=== PATIENT | male | born 1970 | race Caucasian/White ===

== ENCOUNTER 2019-12-14 11:10 | Emergency (ER) | payer BC ==
--- NOTE | 2019-12-14 12:02 | RAD REPORT ---
EXAM DESCRIPTION: CT - [id number] - 12/14/2019 11:51 am CLINICAL HISTORY: Trauma, head and neck injury. head injury COMPARISON: No comparisons TECHNIQUE: Axial 5 mm thick images of the head were obtained. Axial 2 mm thick images of the cervical spine were obtained with sagittal and coronal reconstruction images generated and reviewed. All CT scans are performed using dose optimization technique as appropriate and may include automated exposure control or mA/KV adjustment according to patient size. FINDINGS: CT HEAD WITHOUT CONTRAST: No acute hemorrhage, hydrocephalus or extra-axial collection is identified.No areas of brain edema or midline shift. The paranasal sinuses and mastoids are clear.The calvarium is intact. CT CERVICAL SPINE WITHOUT CONTRAST: No fracture or subluxation.Mild to moderate lower cervical spondylosis.No prevertebral soft tissues s welling is identified. IMPRESSION: No acute intracranial or cervical spine findings. Mild to moderate lower cervical spondylosis.
--- NOTE | 2019-12-14 12:15 | ER ---
Nurse's Notes [facility] Name: Arben Cain Age: 49 yrs Sex: Male : 1970 Arrival Date: 12/14/2019 Time: 11:13 Bed 18 Private MD: Diagnosis: Superficial injury of head Presentation: 12/14 11:27 Presenting complaint: Patient states: slipped and fell in bathtub 2 days ago, has a big iw knot on back of head and couldn't wear his hard hat at work because of the pain, was told he needed a doctor's note to return , pt denies LOC, denies being on blood thinners , c/o mild headache. 11:27 Acuity: [facility] iw 11:27 Method Of Arrival: Ambulatory iw 11:29 Transition of care: patient was not received from another setting of care. Onset of iw symptoms was December 12, 2019. Risk Assessment: Do you want to hurt yourself or someone else? Patient reports no desire to harm self or others. Initial Sepsis Screen: Does the patient meet any 2 criteria? No. Patient's initial sepsis screen is negative. Does the patient have a suspected source of infection? No. Patient's initial sepsis screen is negative. Care prior to arrival: None. Triage Assessment: 11:30 General: Appears in no apparent distress. comfortable, Behavior is calm, cooperative, bp appropriate for age. Pain: Complains of pain in left side of the back of head. EENT: No deficits noted. Neuro: No deficits noted. Cardiovascular: No deficits noted. Respiratory: No deficits noted. GI: No signs and/or symptoms were reported involving the gastrointestinal system. : No signs and/or symptoms were reported regarding the genitourinary system. Derm: No deficits noted. Musculoskeletal: No deficits noted. Historical: - Allergies: 11:30 No Known Allergies; iw - Home Meds: 11:30 None [Active]; iw - PMHx: 11:30 None; iw - PSHx: 11:30 leg sx; Hernia repair; iw - Immunization history:: Adult Immunizations. - Coronavirus screen:: The patient has NOT traveled to [place], [place], or [place] in the past 14 days. Proceed with normal triage process as indicated. - Social history:: Smoking status: Patient reports the use of cigarette tobacco products, smokes one pack cigarettes per day. - Ebola Screening: : Patient negative for fever greater than or equal to 101.5 degrees Fahrenheit, and additional compatible Ebola Virus Disease symptoms Patient denies exposure to infectious person Patient denies travel to an Ebola-affected area in the 21 days before illness onset No symptoms or risks identified at this time. Screenin:30 Abuse screen: Denies threats or abuse. Denies injuries from another. Nutritional bp screening: No deficits noted. Tuberculosis screening: No symptoms or risk factors identified. Fall Risk None identified. Assessment: 11:30 General: SEE TRIAGE NOTE. bp 12:32 Reassessment: PT D/C HOME AMBULATORY, DX WITH SUPERFICIAL HEAD INJURY. bp Vital Signs: 11:30 BP 163 / 101; Pulse 82; Resp 16; Temp 97.8; Pulse Ox 100% on R/A; Weight 102.06 kg; iw Height 6 ft. (182.88 cm); Pain 1/10; 12:32 BP 157 / 97; Pulse 81; Resp 17; Temp 98; Pulse Ox 99% ; bp 11:30 Body Mass Index 30.52 (102.06 kg, 182.88 cm) ED Course: 11:13 Patient arrived in ED. ag5 11:29 Triage completed. iw 11:30 Arm band placed on. iw 11:30 Patient has correct armband on for positive identification. Bed in low position. Call bp light in reach. Side rails up X2. 11:33 Miguel Love PA is PHCP. mell 11:33 Phyllis Pastrana MD is Attending Physician. [facility] 11:44 Ritesh Gao, RN is Primary Nurse. bp 11:53 CT Head C Spine In Process Unspecified. EDMS 12:32 No provider procedures requiring assistance completed. Patient did not have IV access bp during this emergency room visit. Administered Medications: No medications were administered Outcome: 12:15 Discharge ordered by . m 12:32 Discharged to home ambulatory. bp 12:32 Condition: stable 12:32 Discharge instructions given to patient, Instructed on discharge instructions, follow up and referral plans. Demonstrated understanding of instructions, follow-up care. 12:34 Patient left the ED. bp Signatures: Dispatcher [employer] EDMS Miguel Love PA PA jmm Williams, Irene, RN RN iw Ritesh Gao RN RN Cruz Ibarradelaney ag5
--- NOTE | 2019-12-14 12:16 | EDPHYS ---
Physician Documentation [facility] Name: Arben Cain Age: 49 yrs Sex: Male : 1970 Arrival Date: 12/14/2019 Time: 11:13 Bed 18 Private MD: ED Physician Phyllis Pastrana HPI: 12/14 11:39 This 49 yrs old Male presents to ER via Ambulatory with complaints of Fall jmm Injury, Head Injury-Adult. 11:39 Details of fall: The patient fell from an upright position. Onset: The symptoms/episode jmm began/occurred acutely, 2 day(s) ago. Associated injuries: The patient sustained injury to the head. Patient states he slipped in the bathtub 2 days prior hitting the back of his head. Patient states having soreness and headache since. Denies vomiting, denies LOC. . Historical: - Allergies: 11:30 No Known Allergies; iw - Home Meds: 11:30 None [Active]; iw - PMHx: 11:30 None; iw - PSHx: 11:30 leg sx; Hernia repair; iw - Immunization history:: Adult Immunizations. - Coronavirus screen:: The patient has NOT traveled to [place], [place], or [place] in the past 14 days. Proceed with normal triage process as indicated. - Social history:: Smoking status: Patient reports the use of cigarette tobacco products, smokes one pack cigarettes per day. - Ebola Screening: : Patient negative for fever greater than or equal to 101.5 degrees Fahrenheit, and additional compatible Ebola Virus Disease symptoms Patient denies exposure to infectious person Patient denies travel to an Ebola-affected area in the 21 days before illness onset No symptoms or risks identified at this time. ROS: 11:39 Constitutional: Negative for fever, chills, and weight loss, Cardiovascular: Negative jmm for chest pain, palpitations, and edema, Respiratory: Negative for shortness of breath, cough, wheezing, and pleuritic chest pain. 11:39 Neuro: Positive for headache. 11:39 All other systems are negative. Exam: 11:39 Constitutional: This is a well developed, well nourished patient who is awake, alert, jmm and in no acute distress. 11:39 Eyes: EOMI, no conjunctival erythema appreciated ENT: Moist Mucus Membranes 11:39 Chest/axilla: Normal chest wall appearance and motion. Cardiovascular: Regular rate and rhythm. No edema appreciated Respiratory: Normal respirations, no respiratory distress appreciated Abdomen/GI: Non distended, soft Back: Normal ROM Skin: General appearance color normal MS/ Extremity: Moves all extremities, no obvious deformities appreciated, no edema noted to the lower extremities Neuro: Awake and alert, normal gait Psych: Behavior is normal, Mood is normal, Patient is cooperative and pleasant 11:39 Head/face: Noted is tenderness, that is moderate, of the left side of the back of head. 11:39 Neck: C-spine: appears grossly normal. Vital Signs: 11:30 BP 163 / 101; Pulse 82; Resp 16; Temp 97.8; Pulse Ox 100% on R/A; Weight 102.06 kg; iw Height 6 ft. (182.88 cm); Pain 1/10; 12:32 BP 157 / 97; Pulse 81; Resp 17; Temp 98; Pulse Ox 99% ; bp 11:30 Body Mass Index 30.52 (102.06 kg, 182.88 cm) iw MDM: 11:38 Patient medically screened. [facility] 12:14 Data reviewed: vital signs, nurses notes. Counseling: I had a detailed discussion with mell the patient and/or guardian regarding: the historical points, exam findings, and any diagnostic results supporting the discharge/admit diagnosis, radiology results, the need for outpatient follow up, to return to the emergency department if symptoms worsen or persist or if there are any questions or concerns that arise at home. ED course: Patient given head injury return precautions. Patient understood and agrees with the plan of care. . 12/14 11:38 Order name: CT Head C Spine; Complete Time: 12:14 [facility] Administered Medications: No medications were administered Disposition: 18:18 Co-signature as Attending Physician, Phyllis Pastrana MD. ma2 Disposition: 12/14/19 12:15 Discharged to Home. Impression: Superficial injury of head. - Condition is Stable. - Discharge Instructions: Head Injury, Adult. - Medication Reconciliation Form, Thank You Letter, Antibiotic Education, Prescription Opioid Use, Work release form form. - Follow up: Private Physician; When: 2 - 3 days; Reason: Recheck today's complaints, Continuance of care, Re-evaluation by your physician. Signatures: Dispatcher [employer] EDMS Christi Loveel, PA PA jmm Pito, Desiree, RN RN Ritesh Orellana, RN RN bp Phyllis Pastrana MD MD ma2 Corrections: (The following items were deleted from the chart) 12:34 12:15 12/14/2019 12:15 Discharged to Home. Impression: Superficial injury of head. bp Condition is Stable. Forms are Medication Reconciliation Form, Thank You Letter, Antibiotic Education, Prescription Opioid Use. Follow up: Private Physician; When: 2 - 3 days; Reason: Recheck today's complaints, Continuance of care, Re-evaluation by your physician. mell
[2019-12-14 12:46] VITALS: BP 157/97; TEMP 98; O2SAT 99
== END 2019-12-14 12:34 | disposition home or self-care (01) ==
LOC: ER 11:10
DX: S00.90XA Unspecified superficial injury of unspecified part of head, initial encounter (principal); W18.2XXA Fall in (into) shower or empty bathtub, initial encounter; Y93.89 Activity, other specified; Y92.9 Unspecified place or not applicable
CPT/HCPCS: 70450; 72125; 99283